=== PATIENT | male | born 1945 | race Caucasian/White ===

== ENCOUNTER 2016-09-15 20:42 | Emergency (ER) | payer MEDICARE, BC ==
[~2016-09-15] VITALS: Ht 185.4 cm; Wt 104.3 kg
[2016-09-15] MEDS ORDERED: EPINEPHRINE-PF 1:1000 1 MG/ML AMPUL IV ONE (21:00)
[2016-09-15] MEDS ORDERED: EPINEPHRINE 1 MG/1 ML AMP ONE (21:05)
--- NOTE | 2016-09-15 21:50 | NUR ---
PT STATES "I FEEL COMFORTABLE GOING HOME NOW. BLEEDING HAS STOP." BILATERAL NOSE ROCKET INTACT.
--- NOTE | 2016-09-15 22:03 | NUR ---
Patient discharged to home in stable conditon WITH TAKING PT HOME. Written and verbal after care instructions given. Patient verbalizes understanding of instructions. WALKED OUT OF ER WITH STEADY GAIT
[2016-09-15 22:05] VITALS: BP 122/88
== END 2016-09-15 22:05 | disposition home or self-care (01) ==
LOC: ER 20:42
DX: R04.0 Epistaxis (principal); Z79.01 Long term (current) use of anticoagulants
CPT/HCPCS: 30901; 99284; A4217; A4663; J0171

== ENCOUNTER 2017-06-18 12:37 | Emergency (ER) | payer MEDICARE, BC ==
[~2017-06-18] VITALS: Ht 185.4 cm; Wt 106.6 kg
[2017-06-18] MEDS ORDERED: EPINEPHRINE-PF 1:1000 1 MG/ML AMPUL IV ONE (13:00)
[2017-06-18] MEDS ORDERED: EPINEPHRINE 1 MG/1 ML AMP ONE (13:07)
== END 2017-06-18 13:16 | disposition home or self-care (01) ==
LOC: ER 12:45
DX: R04.0 Epistaxis (principal)
CPT/HCPCS: 96374; 99284; A4663; J0171